=== PATIENT | male | born 1930 | race Caucasian/White ===

== ENCOUNTER 2021-06-21 12:54 | Inpatient (IN) | payer OTHER ==
[~2021-06-21] VITALS: Ht 172.7 cm; Wt 79.4 kg
[~2021-06-21 12:54] MED LIST: ALLOPURINOL100 MG PO; ASPIR 8181 MG PO; BETAPACE80 MG PO; LOTENSIN TAB 1010 MG PO; MECLIZINE HCL12.5 MG PO; TYLENOL325 MG PO; XARELTO20 MG PO
[2021-06-21 13:37] LABS: RED BLOOD COUNT 4.19 M/UL (4.20-5.50); WHITE BLOOD COUNT 8.9 K/UL (4.5-11.0)
[2021-06-21 14:04] LABS: HEMOGLOBIN 6.6 gm/dl (14.0-17.5)
[2021-06-21] MEDS ORDERED: DOCUSATE SODIU100 MG PO (17:20)
[2021-06-21] MEDS ORDERED: CRESTOR10 MG PO (19:16)
[2021-06-21 22:59] LABS: HEMOGLOBIN 6.9 gm/dl (14.0-17.5)
[2021-06-22 04:55] LABS: RED BLOOD COUNT 4.5 M/UL (4.20-5.50); WHITE BLOOD COUNT 6.9 K/UL (4.5-11.0)
[2021-06-22 13:29] LABS: HEMOGLOBIN 8.5 gm/dl (14.0-17.5)
--- NOTE | 2021-06-23 17:18 | NUR ---
informed dr. arreola of received telemetry strips and patient with no s/sx of cardiac insufficiency. acknowledged
[2021-06-24 06:45] LABS: RED BLOOD COUNT 4.63 M/UL (4.20-5.50); WHITE BLOOD COUNT 6.6 K/UL (4.5-11.0)
[2021-06-24] MEDS ORDERED: OMEPRAZOLE40 MG PO (14:37)
--- NOTE | 2021-06-24 16:07 | NUR ---
report given to andrew admitting nurse at [facility]
== END 2021-06-24 18:28 | disposition home health service (06) | DRG 377 ==
LOC: ER1 12:54 → M/S 15:20 → CDU 15:20 → M/S 17:25
PROVIDERS: Emergency Medicine; Physician Assistant; Surgery; ADMIT Internal Medicine
PROC: 0DBL8ZZ Excision of Transverse Colon, Via Natural or Artificial Opening Endoscopic (ICD-10-PCS; 2021-06-24)
PROC: 0DB68ZX Excision of Stomach, Via Natural or Artificial Opening Endoscopic, Diagnostic (ICD-10-PCS; principal; 2021-06-24 09:15)
PROC: 0DB98ZX Excision of Duodenum, Via Natural or Artificial Opening Endoscopic, Diagnostic (ICD-10-PCS; 2021-06-24 09:15)
DX: K92.2 Gastrointestinal hemorrhage, unspecified (principal); I50.33 Acute on chronic diastolic (congestive) heart failure; I13.0 Hypertensive heart and chronic kidney disease with heart failure and stage 1 through stage 4 chronic kidney disease, or unspecified chronic kidney disease; D62 Acute posthemorrhagic anemia; I48.20 Chronic atrial fibrillation, unspecified; N17.9 Acute kidney failure, unspecified; Z20.822 Contact with and (suspected) exposure to COVID-19; H54.40 Blindness, one eye, unspecified eye; E11.22 Type 2 diabetes mellitus with diabetic chronic kidney disease; M10.9 Gout, unspecified; F17.220 Nicotine dependence, chewing tobacco, uncomplicated; N18.30 Chronic kidney disease, stage 3 unspecified; E78.5 Hyperlipidemia, unspecified; K29.90 Gastroduodenitis, unspecified, without bleeding; I27.20 Pulmonary hypertension, unspecified; K57.90 Diverticulosis of intestine, part unspecified, without perforation or abscess without bleeding; K63.5 Polyp of colon; E83.42 Hypomagnesemia; Z79.01 Long term (current) use of anticoagulants; Z86.73 Personal history of transient ischemic attack (TIA), and cerebral infarction without residual deficits; Z95.0 Presence of cardiac pacemaker; Z98.41 Cataract extraction status, right eye; Z98.42 Cataract extraction status, left eye; Z90.49 Acquired absence of other specified parts of digestive tract; Z82.49 Family history of ischemic heart disease and other diseases of the circulatory system; Z83.3 Family history of diabetes mellitus; Z79.82 Long term (current) use of aspirin
CPT/HCPCS: ECHO; 36415; 36430; 71045; 80048; 80053; 82272; 82550; 82553; 82728; 82962; 83036; 83540; 83550; 83735; 83880; 84100; 84484; 85014; 85018; 85025; 85027; 85610; 85730; 86850; 86900; 86901; 86920; 93005; 93306; 96374; 99285; C9113; J1940; J2001; J2704; J7030; J7040; J7050; P9016; U0002

== ENCOUNTER 2021-07-08 01:12 | Observation (INO) | payer OTHER ==
[~2021-07-08] VITALS: Ht 172.7 cm; Wt 79.4 kg
[~2021-07-08 01:12] MED LIST changes: +CRESTOR10 MG PO; +DOCUSATE SODIU100 MG PO; +OMEPRAZOLE40 MG PO
[2021-07-08 02:06] LABS: HEMOGLOBIN 8.9 gm/dl (14.0-17.5); RED BLOOD COUNT 4.83 M/UL (4.20-5.50)
[2021-07-08 02:23] LABS: BUN/CREATININE RATIO 16 (0-10)
[2021-07-08] MEDS ORDERED: OMEPRAZOLE40 MG PO (11:10)
[2021-07-08] MEDS ORDERED: FERROUS SULFAT325 MG PO (11:10)
[2021-07-08] MEDS ORDERED: CEFDINIR300 MG PO (11:11)
[2021-07-08] MEDS ORDERED: BENZONATATE100 MG PO (11:11)
[2021-07-09 04:25] LABS: HEMOGLOBIN 8.4 gm/dl (14.0-17.5); RED BLOOD COUNT 4.55 M/UL (4.20-5.50); WHITE BLOOD COUNT 7.8 K/UL (4.5-11.0)
--- NOTE | 2021-07-10 11:29 | NUR ---
patient back on the floor at 10:13 am resting comfortably, open eyes when spoken to then back to sleep. vital signs wnl. daughter at bedside
[2021-07-10] MEDS ORDERED: XARELTO20 MG PO (13:25)
[2021-07-10 13:46] LABS: HEMOGLOBIN 8.9 gm/dl (14.0-17.5); RED BLOOD COUNT 4.71 M/UL (4.20-5.50); WHITE BLOOD COUNT 8.1 K/UL (4.5-11.0)
[2021-07-10 14:09] LABS: BUN/CREATININE RATIO 15 (0-10)
--- NOTE | 2021-07-10 17:03 | NUR ---
report given to andrew admitting nurse at [facility]
== END 2021-07-10 18:20 | disposition home health service (06) ==
LOC: ER1 01:12 → CDU 02:59 → MED SURG 4 02:59 → CDU 02:59 → 3 EAST 12:44 → MED SURG 4 16:45
PROVIDERS: Family Medicine; Internal Medicine; ADMIT Internal Medicine
DX: K62.5 Hemorrhage of anus and rectum (principal); D68.32 Hemorrhagic disorder due to extrinsic circulating anticoagulants; T45.525A Adverse effect of antithrombotic drugs, initial encounter; Q27.39 Arteriovenous malformation, other site; K57.30 Diverticulosis of large intestine without perforation or abscess without bleeding; K64.1 Second degree hemorrhoids; D62 Acute posthemorrhagic anemia; I12.9 Hypertensive chronic kidney disease with stage 1 through stage 4 chronic kidney disease, or unspecified chronic kidney disease; N18.30 Chronic kidney disease, stage 3 unspecified; E78.5 Hyperlipidemia, unspecified; Z79.01 Long term (current) use of anticoagulants; Z90.49 Acquired absence of other specified parts of digestive tract; Z86.73 Personal history of transient ischemic attack (TIA), and cerebral infarction without residual deficits; U07.1 COVID-19; I48.0 Paroxysmal atrial fibrillation; Z95.0 Presence of cardiac pacemaker; Z79.82 Long term (current) use of aspirin
CPT/HCPCS: 36415; 71045; 80053; 82728; 82962; 83540; 83550; 83605; 83690; 85018; 85025; 85027; 86140; 86850; 86900; 86901; 96374; 96376; 99285; C9113; G0378; J2250; J3010; J7030; J7040; U0002

== ENCOUNTER → 2021-07-24 | Outpatient (CLI) | payer OTHER ==
[~2021-07-24] MED LIST changes: +BENZONATATE100 MG PO; +CEFDINIR300 MG PO; +FERROUS SULFAT325 MG PO
== END ==
LOC: KOH-I 07-23 15:00
DX: R60.0 Localized edema (principal); I82.602 Acute embolism and thrombosis of unspecified veins of left upper extremity; M79.89 Other specified soft tissue disorders
CPT/HCPCS: 93970; 93971

== ENCOUNTER → 2021-07-24 | Outpatient (CLI) | payer OTHER ==
[2021-07-24 16:13] LABS: HEMOGLOBIN 9.8 gm/dl (14.0-17.5); RED BLOOD COUNT 5.08 M/UL (4.20-5.50); WHITE BLOOD COUNT 8.3 K/UL (4.5-11.0)
== END ==
LOC: LAB 15:42
PROVIDERS: Nurse Practitioner
DX: D50.0 Iron deficiency anemia secondary to blood loss (chronic) (principal)
CPT/HCPCS: 36415; 85025